=== PATIENT | male | born 1960 | race Asian ===

== ENCOUNTER 2019-06-10 15:58 | Outpatient (CLI) | payer OTHER | END 2019-06-10 15:59 | disposition critical access hospital (66) | LOC: EMS 15:58 | PROVIDERS: ATTEND Surgery | DX: R41.82 Altered mental status, unspecified (principal); R45.1 Restlessness and agitation | CPT/HCPCS: A0425; A0427 ==

== ENCOUNTER 2019-06-10 16:20 | Inpatient (IN) | payer OTHER ==
[2019-06-10 16:45] LABS: BASOPHILS % (AUTO) 0.3 %; EOSINOPHILS % (AUTO) 0.3 %; HGB - HEMOGLOBIN 14.3 g/dL (14.0-18.0); LYMPHOCYTES # (AUTO) 0.6 10^3/uL (1.5-3.5); LYMPHOCYTES % (AUTO) 7.7 %; MEAN CORPUSCULAR HEMOGLOBIN 30.3 pg (27.0-31.0); MEAN CORPUSCULAR HGB CONC 32.6 g/dL (32.0-36.0); MEAN CORPUSCULAR VOLUME 92.8 fL (80.0-94.0); MEAN PLATELET VOLUME 8.7 fL (7.4-11.4); MONOCYTES # (AUTO) 0.4 10^3/uL (0.0-1.0); MONOCYTES % (AUTO) 5.6 %; NEUTROPHILS # (AUTO) 6.6 10^3/uL (1.5-6.6); NEUTROPHILS % (AUTO) 85.8 %; PLT - PLATELET COUNT 189 10^3/uL (130-450); RED BLOOD COUNT 4.72 10^6/uL (4.70-6.10); RED CELL DISTRIBUTION WIDTH 12.5 % (12.0-15.0); WHITE BLOOD COUNT 7.7 x10^3/uL (4.8-10.8)
[2019-06-10] MEDS ORDERED: PROCHLORPERAZINE 10 MG/2 ML VIAL IVP STA (16:46)
[2019-06-10] MEDS ORDERED: diphenhydrAMINE INJ 50 MG/ML VIAL IVP STA (16:46)
--- NOTE | 2019-06-10 16:49 | CT Report ---
Reason: ALOC, headache Procedure Date: 06/10/2019 Accession Number: [id number] / [id number] Procedure: CT - HEAD WO CPT Code: FULL RESULT: EXAM: CT HEAD EXAM DATE: 06/10/2019 04:27 PM. CLINICAL HISTORY: ALOC, headache. COMPARISON: None. TECHNIQUE: Multiaxial CT images were obtained from the foramen magnum to the vertex. Reformats: Sagittal and coronal. IV contrast: None. In accordance with CT protocol optimization, one or more of the following dose reduction techniques were utilized for this exam: automated exposure control, adjustment of mA and/or KV based on patient size, or use of iterative reconstructive technique. FINDINGS: Parenchyma: No intraparenchymal hemorrhage. No evidence of mass, midline shift, or CT findings of infarction. Larsen-white differentiation is distinct. Extraaxial Spaces: Normal for age. No subdural or epidural collections identified. Ventricles: Normal in size and position. Sinuses and Orbits: Imaged paranasal sinuses, orbits, and mastoids show no significant abnormality. Bones: No evidence of fracture or calvarial defect. Other: Globes and orbits are unremarkable. IMPRESSION: 1. No acute intracranial abnormality is identified. RADIA
--- NOTE | 2019-06-10 16:51 | ED Physician Documentation ---
PD HPI HEADACHE - Stated complaint Stated Complaint: POSS HEAD BLEED - Chief complaint Chief Complaint: Neuro - History obtained from History obtained from: Patient, Family - History of Present Illness Timing - onset: How many days ago (3) Timing - onset during: Rest Timing - duration: Days (3) Timing - details: Gradual onset Pain level max: 10 Pain level now: 10 Location: Global Quality: Throbbing, Aching. No: Thunderclap Associated symptoms: Other (became altered and combative today) Recently seen: Clinic (toradol given in clinic today.) - Additional information Additional information: given 7mg versed by EMS Review of Systems Unable to obtain: AMS Constitutional: denies: Fever GI: denies: Vomiting PD PAST MEDICAL HISTORY - Past Medical History Past Medical History: Yes Cardiovascular: Hypertension, High cholesterol Respiratory: None Neuro: None Endocrine/Autoimmune: None GI: None : None HEENT: None Psych: None Musculoskeletal: None Derm: None - Past Surgical History Past Surgical History: Yes HEENT: Tonsil/Adenoidectomy - Present Medications Home Medications: Ambulatory Orders Medication Instructions Recorded Confirmed Lisinopril 10 mg PO DAILY 06/10/19 06/10/19 Lisinopril 10 mg PO DAILY 06/10/19 06/10/19 Lovastatin 40 mg PO DAILY 06/10/19 06/10/19 Lovastatin 40 mg PO DAILY 06/10/19 06/10/19 Venlafaxine HCl [Venlafaxine HCl 37.5 mg PO DAILY 06/10/19 06/10/19 ER] Venlafaxine [Effexor] 37.5 mg PO DAILY 06/10/19 06/10/19 - Allergies Allergies/Adverse Reactions: Allergies Allergy/AdvReac Type Severity Reaction Status Date / Time No Known Drug Allergies Allergy Verified 06/10/19 16:35 - Social History Does the pt smoke?: No Smoking Status: Never smoker Does the pt drink ETOH?: Yes Does the pt have substance abuse?: Yes Substance Use and Type: Marijuana - Immunizations Immunizations are current?: Yes - POLST Patient has POLST: No PD ED PE NORMAL - Vitals Vital signs reviewed: Yes - General General: No acute distress, Other (lying on stretcher, medicated with versed.) - HEENT HEENT: Atraumatic, PERRL, Moist mucous membranes - Neck Neck: Supple, no meningeal sign, No bony TTP - Cardiac Cardiac: RRR - Respiratory Respiratory: No respiratory distress, Clear bilaterally - Abdomen Abdomen: Soft, Non tender, Non distended - Back Back: No spinal TTP - Derm Derm: Warm and dry - Extremities Extremities: No deformity - Neuro Neuro: Other (drowsy, but arousable) Results - Vitals Vitals: Vital Signs - 24 hr 06/10/19 06/10/19 06/10/19 16:27 17:12 17:30 Temperature 36.4 C L Heart Rate 65 70 68 Respiratory 24 16 18 Rate Blood Pressure 129/70 109/57 L 153/93 H O2 Saturation 100 100 100 06/10/19 06/10/19 06/10/19 18:00 18:30 19:00 Temperature Heart Rate 69 70 70 Respiratory 18 18 16 Rate Blood Pressure 147/83 H 161/90 H 158/90 H O2 Saturation 98 99 99 06/10/19 06/10/19 06/10/19 19:30 20:00 21:00 Temperature 36.6 C Heart Rate 71 72 71 Respiratory 15 18 12 Rate Blood Pressure 152/84 H 145/79 H 148/85 H O2 Saturation 99 99 99 06/10/19 21:54 Temperature 36.7 C Heart Rate 68 Respiratory 14 Rate Blood Pressure 149/86 H O2 Saturation 98 Oxygen O2 Source Room air - EKG (time done) 1727 Rate: Rate (enter#) (59) Rhythm: NSR Causey: Normal Intervals: Normal VA QRS: Normal Ischemia: Normal ST segments - Labs Labs: Laboratory Tests 06/10/19 06/10/19 06/10/19 16:39 16:39 16:49 WBC 7.7 RBC 4.72 Hgb 14.3 Hct 43.8 MCV 92.8 MCH 30.3 MCHC 32.6 RDW 12.5 Plt Count 189 MPV 8.7 Neut # (Auto) 6.6 Lymph # (Auto) 0.6 L [place] # (Auto) 0.4 Eos # (Auto) 0.0 Baso # (Auto) 0.0 Absolute Nucleated RBC 0.00 Nucleated RBC % 0.0 Sodium 137 Potassium 4.2 Chloride 103 Carbon Dioxide 23 Anion Gap 11.0 BUN 25 H Creatinine 1.2 Estimated GFR (MDRD) 62 L Glucose 141 H Calcium 9.2 Total Bilirubin 0.3 AST 18 ALT 16 Alkaline Phosphatase 41 L Total Protein 7.1 Albumin 4.0 Globulin 3.1 Albumin/Globulin Ratio 1.3 Lipase 26 Urine Color Urine Clarity Urine pH Ur Specific [place] Urine Protein Urine Glucose (UA) Urine Ketones Urine Occult Blood Urine Nitrite Urine Bilirubin Urine Urobilinogen Ur Leukocyte Esterase Ur Microscopic Review Urine Culture Comments Salicylates < 6.0 Urine Opiates Screen Ur Oxycodone Screen Urine Methadone Screen Ur Propoxyphene Screen Acetaminophen < 10 L Ur Barbiturates Screen Ur Tricyclics Screen Ur Phencyclidine Scrn Ur Amphetamine Screen U Methamphetamines Scrn U Benzodiazepines Scrn Urine Cocaine Screen U Cannabinoids Screen Ethyl Alcohol < 5.0 06/10/19 17:33 WBC RBC Hgb Hct MCV MCH MCHC RDW Plt Count MPV Neut # (Auto) Lymph # (Auto) [place] # (Auto) Eos # (Auto) Baso # (Auto) Absolute Nucleated RBC Nucleated RBC % Sodium Potassium Chloride Carbon Dioxide Anion Gap BUN Creatinine Estimated GFR (MDRD) Glucose Calcium Total Bilirubin AST ALT Alkaline Phosphatase Total Protein Albumin Globulin Albumin/Globulin Ratio Lipase Urine Color YELLOW Urine Clarity CLEAR Urine pH 5.5 Ur Specific [place] 1.025 Urine Protein NEGATIVE Urine Glucose (UA) NEGATIVE Urine Ketones NEGATIVE Urine Occult Blood TRACE-LYSE Urine Nitrite NEGATIVE Urine Bilirubin NEGATIVE Urine Urobilinogen 0.2 (NORMAL) Ur Leukocyte Esterase NEGATIVE Ur Microscopic Review NOT INDICATED Urine Culture Comments NOT INDICATED Salicylates Urine Opiates Screen NEGATIVE Ur Oxycodone Screen NEGATIVE Urine Methadone Screen NEGATIVE Ur Propoxyphene Screen NEGATIVE Acetaminophen Ur Barbiturates Screen NEGATIVE Ur Tricyclics Screen NEGATIVE Ur Phencyclidine Scrn NEGATIVE Ur Amphetamine Screen NEGATIVE U Methamphetamines Scrn NEGATIVE U Benzodiazepines Scrn NEGATIVE Urine Cocaine Screen NEGATIVE U Cannabinoids Screen POSITIVE H Ethyl Alcohol - Rads (name of study) head CT Radiology: Prelim report reviewed, EMP read contemporaneously, See rad report (no acute abnormality) CT angiogram head and neck Radiology: Prelim report reviewed, EMP read contemporaneously, See rad report (normal) Procedures - Lumbar Puncture Position: Laying left side Location: L4-L5, Midline approach Anesthesia: Local lidocaine, Conscious sedation (versed) CSF: Clear Other: Sterile prep and drape, Patient tolerated well, No complications, Other (consent obtained from ) PD MEDICAL DECISION MAKING - ED course Complexity details: reviewed results, re-evaluated patient, considered differential, d/w patient, d/w family, d/w strategic planning consultant ED course: 59-year-old male with a history of hypertension. Presents with 3 days of headache. Acutely altered and combative this afternoon. Unclear etiology. This was several hours after a Toradol injection. He did use marijuana on Monday per his son. No fevers. No acute laboratory abnormalities to explain his symptoms. Negative head CT. Normal CT angiogram of the head and neck. CSF results will be followed up by the hospitalist. Fluid was clear upon collection.. He continues to be acutely altered in the emergency department. Therefore will place in observation for further evaluation and care. Discussed the case with Dr. Mario, hospitalist who accepts. This document was made in part using voice recognition software. While efforts are made to proofread this document, sound alike and grammatical errors may occur. Departure - Departure Disposition: ED Place in Observation Clinical Impression: Combative reaction Altered mental status Qualifiers: Altered mental status type: unspecified Qualified Code(s): R41.82 - Altered mental status, unspecified Headache Qualifiers: Headache type: unspecified Headache chronicity pattern: acute headache Intractability: intractable Qualified Code(s): R51 - Headache Condition: Stable
[2019-06-10 16:59] LABS: ACETAMINOPHEN < 10 ug/mL (10-30); ALBUMIN/GLOBULIN RATIO 1.3 (1.0-2.2); ALKALINE PHOSPHATASE 41 IU/L (42-121); ALT ALANINE AMINOTRANSFERASE 16 IU/L (10-60); AST ASPARTATE AMINOTRANSFERASE 18 IU/L (10-42); BILIRUBIN,TOTAL 0.3 mg/dL (0.2-1.0); BUN - BLOOD UREA NITROGEN 25 mg/dL (6-20); CALCIUM 9.2 mg/dL (8.5-10.3); CARBON DIOXIDE - CO2 23 mmol/L (21-32); CHLORIDE 103 mmol/L (101-111); CREATININE 1.2 mg/dL (0.6-1.2); GFR - MDRD 62 (>89); GLUCOSE 141 mg/dL (70-100); LIPASE 26 U/L (22-51); SALICYLATE < 6.0 mg/dL; SODIUM 137 mmol/L (135-145); TOTAL PROTEIN 7.1 g/dL (6.7-8.2)
[2019-06-10] MEDS ORDERED: SODIUM CHLORIDE 0.9% 1,000 ML IV ONE ×2 (17:05→19:49)
[2019-06-10] MEDS ORDERED: HYDROmorphone 1 MG/ML CARPUJECT IVP STA (17:05)
[2019-06-10 17:39] LABS: MUDS CUTOFF CONCENTRATIONS CUTOFF CONC BELOW:
[2019-06-10 17:43] LABS: BILIRUBIN,URINE NEGATIVE (NEGATIVE); GLUCOSE, URINE (UA) NEGATIVE (NEGATIVE); KETONES,URINE (UA) NEGATIVE (NEGATIVE); LEUKOCYTE ESTERASE, URINE NEGATIVE (NEGATIVE); NITRITE,URINE NEGATIVE (NEGATIVE); OCCULT BLOOD,URINE TRACE-LYSE (NEGATIVE); PH,URINE 5.5 PH (5.0-7.5); PROTEIN,URINE NEGATIVE (NEGATIVE); UROBILINOGEN,URINE 0.2 (NORMAL) E.U./dL (NORMAL)
[2019-06-10 17:46] LABS: CLARITY,URINE CLEAR (CLEAR)
[2019-06-10 17:52] LABS: AMPHETAMINE SCREEN,URINE NEGATIVE (NEGATIVE); BENZODIAZEPINES SCREEN, URINE NEGATIVE (NEGATIVE); COCAINE SCREEN URINE NEGATIVE (NEGATIVE); METHADONE SCREEN, URINE NEGATIVE (NEGATIVE); METHAMPHETAMINES SCREEN, URINE NEGATIVE (NEGATIVE); OPIATE SCREEN, URINE NEGATIVE (NEGATIVE); OXYCODONE SCREEN, URINE NEGATIVE (NEGATIVE); PROPOXYPHENE SCREEN, URINE NEGATIVE (NEGATIVE); TRICYCLIC ANTIDEPRESSANT,URINE NEGATIVE (NEGATIVE)
[2019-06-10] MEDS ORDERED: MIDAZOLAM 50 MG/10 ML VIAL IVP STA (20:35)
[2019-06-10] MEDS ORDERED: IOVERSOL 320 100 ML VIAL IVP ONE ×2 (20:48→21:20)
[2019-06-10] MEDS ORDERED: MIDAZOLAM 2 MG/2 ML VIAL IVP STA (20:51)
--- NOTE | 2019-06-10 21:34 | CT Report ---
Reason: ALOC, headache Procedure Date: 06/10/2019 Accession Number: [id number] / [id number] Procedure: CT - ANGIO HEAD W/WO CPT Code: FULL RESULT: EXAM: CT ANGIOGRAM HEAD. CT SCAN OF THE HEAD WITH CONTRAST. EXAM DATE: 06/10/2019 09:16 PM CLINICAL HISTORY: 59-year-old man with headache and altered mental status. COMPARISON: HEAD W/O 06/10/2019 4:24 PM. TECHNIQUE: - CT Scan Head: Using a multidetector scanner, axial images were acquired from the foramen magnum to the skull vertex following contrast administration. - CT Angiogram: Using a multidetector scanner, high-resolution axial images were acquired from the skull base through vertex following rapid infusion of intravenous contrast. Reformats: Multiplanar MIP reformats were reconstructed. Nascet criteria used for stenosis measurement. IV Contrast: OPTI 320 100ML. In accordance with CT protocol optimization, one or more of the following dose reduction techniques were utilized for this exam: automated exposure control, adjustment of mA and/or KV based on patient size, or use of iterative reconstructive technique. FINDINGS: CTA HEAD: RIGHT: - Visualized Internal Carotid: Patent without significant stenosis or aneurysm. There is trace atherosclerotic plaque along the siphon. - Anterior Cerebral: Patent without significant stenosis or aneurysm. - Middle Cerebral: Patent without significant stenosis or aneurysm. - Posterior Cerebral: Patent without significant stenosis or aneurysm. - Posterior Communicating: Not well seen. - Visualized Vertebral: Patent without significant stenosis or dissection. LEFT: - Visualized Internal Carotid: Patent without significant stenosis or atherosclerotic plaque. Small (1-2 mm) tapered outpouching is present along the supraclinoid segment at the expected location of the posterior communicating artery, most consistent with infundibulum. Otherwise, no evidence of aneurysm. - Anterior Cerebral: Patent without significant stenosis or aneurysm. - Middle Cerebral: Patent without significant stenosis or aneurysm. - Posterior Cerebral: Patent without significant stenosis or aneurysm. - Posterior Communicating: Not well seen. - Visualized Vertebral: Patent without significant stenosis or dissection. CENTRAL: - Anterior Communicating: Patent. No aneurysm. - Basilar: Patent without significant stenosis, dissection, or aneurysm. POSTCONTRAST HEAD: No abnormal enhancement. IMPRESSION: 1. Normal CTA of the head. No significant vascular stenosis or aneurysm. RADIA
--- NOTE | 2019-06-10 21:39 | CT Report ---
Reason: ALOC, headache Procedure Date: 06/10/2019 Accession Number: [id number] / [id number] Procedure: CT - ANGIO NECK W CPT Code: FULL RESULT: EXAM: CT ANGIOGRAM NECK EXAM DATE: 06/10/2019 09:16 PM. CLINICAL HISTORY: 59-year-old man with headache and altered mental status. COMPARISON: HEAD W/O 06/10/2019 4:24 PM HEAD ANGIO 06/10/2019 9:08 PM. TECHNIQUE: Routine axial helical imaging was performed from the skull base through the aortic arch. Reconstructions: Routine multiplanar 3D MIP reconstructions. IV Contrast: OPTI 320 100ML. Evaluation of arterial stenosis is based on a NASCET method of measurement. In accordance with CT protocol optimization, one or more of the following dose reduction techniques were utilized for this exam: automated exposure control, adjustment of mA and/or KV based on patient size, or use of iterative reconstructive technique. FINDINGS: RIGHT: - Common and Internal Carotid: Patent without signficant stenosis. No evidence of atherosclerotic plaque at the bifurcation. Stenosis by NASCET criteria: 0%. No evidence of dissection. - External Carotid: Unremarkable. - Vertebral: Patent without significant stenosis. No evidence of dissection. LEFT: - Common and Internal Carotid: Patent without signficant stenosis. No evidence of atherosclerotic plaque at the bifurcation. Stenosis by NASCET criteria: 0%. No evidence of dissection. - External Carotid: Unremarkable. - Vertebral: Patent without significant stenosis. No evidence of dissection. SOFT TISSUES AND BONES: Visualized soft tissues are unremarkable. Lung apices are clear. No evidence of acute fracture or malalignment of the cervical spine. IMPRESSION: 1. Normal CTA of the neck. No significant vascular stenosis, atherosclerotic plaque, or dissection. RADIA
[2019-06-10 22:22] LABS: CLARITY,CSF CLEAR (CLEAR); COLOR,CSF COLORLESS (COLORLESS); CSF TUBE # CSF TUBE# 3
[2019-06-10 22:23] LABS: CSF XANTHOCHROMIA ABSENT (ABSENT)
[2019-06-10 22:24] LABS: RED BLOOD CELL,CSF 0 /mm^3 (0-1); WHITE BLOOD CELL,CSF 192 /mm^3 (0-5)
--- NOTE | 2019-06-10 22:28 | HISTORY & PHYSICAL EXAMINATION ---
Chief Complaint - Chief Complaint Chief Complaint: Confusion, Headache per son History of Present Illness - Admitted From Admitted From:: Home - History Obtained From Records Reviewed: Yes History obtained from: Patient's son, EMR Exam Limitations: Encephalopathy - History of Present Illness HPI Comment/Other: This is a 59 year old male with a past medical history significant for hypertension who presents from home today as he became altered and combative. History is obtained from the son as the patient is altered. The patient's son tells me that he was doing well up until a few days ago when he started to complain of a headache which is not usual for the patient. The headache progressively got worse and the son believes the patient was complaining of some mild left ear discomfort. The headache became so severe this morning that he seeked medical attention at his PCP's office. The son tells me that the headache must have been really severe as his father normally does not seek medical attention. At his PCP's office, he received a shot of Toradol and went home to take a nap around noon. When he woke up from the nap, he was confused and agitated. EMS was called and the patient was given 7mg of Versed to sedate him. The son tells me he was doing quite well up until just a few days ago. He was still working out and being quite active. He did smoke a little marijuana on Monday per the son. He did travel to [place] and [place] near the end of April. He stayed in the city and did not go hiking or camping to their knowledge. He had not been complaining of fevers or rash. He does not have a history of h eadaches and an episode like this has not happened before. In the emergency department, he was afebrile with unremarkable vitals. His lab studies were also unremarkable. A CT and CTA of the head was unremarkable. The ER Physician performed an LP which showed clear CSF fluid. The patient will be admitted for further workup and management of his encephalopathy. History - Past Medical History Cardiovascular: reports: Hypertension, High cholesterol Respiratory: reports: None Neuro: reports: None Endocrine/Autoimmune: reports: None GI: reports: None : reports: None HEENT: reports: None Psych: reports: None Musculoskeletal: reports: None Derm: reports: None MRSA Hx?: No - Past Surgical History HEENT: reports: Tonsil/Adenoidectomy - Family & Social History Family History: Father: Hypertension Family History Comment/Other: Son reports no family history of seizures, headach es, stroke or cardiac problems. Living arrangement: At home Social History Notes: Does not smoke cigarettes although he does use tobacco. Rare marijuana use. Does not use illicit drugs. Is quite active and works out regularly. Recently traveled to [place] and [facility] in April but stayed in the city and did not camping/hiking. This history is obtained from the son. - Substance History Use: Uses substance without health or social issues: Tobacco, Cannabis - POLST Patient has POLST: No Meds/Allgy - Home Medications Home Medications: Ambulatory Orders Medication Instructions Recorded Confirmed Lisinopril 10 mg PO DAILY 06/10/19 06/10/19 Lisinopril 10 mg PO DAILY 06/10/19 06/10/19 Lovastatin 40 mg PO DAILY 06/10/19 06/10/19 Lovastatin 40 mg PO DAILY 06/10/19 06/10/19 Venlafaxine HCl [Venlafaxine HCl 37.5 mg PO DAILY 06/10/19 06/10/19 ER] Venlafaxine [Effexor] 37.5 mg PO DAILY 06/10/19 06/10/19 - Allergies Allergies/Adverse Reactions: Allergies Allergy/AdvReac Type Severity Reaction Status Date / Time No Known Drug Allergies Allergy Verified 06/10/19 16:35 Review of Systems - Neurological Neurological: reports: Headache - All Other Systems All Other Systems: reports: Other (Unable to obtain reviews of system due to encephalopathy.) Prior Level of Functionality: Independent with ADL's per son. Exam - Vital Signs Reviewed Vital Signs: Yes Vital Signs: Vital Signs x48h Temp Pulse Resp BP Pulse Ox 06/10/19 21:54 36.7 C 68 14 149/86 H 98 06/10/19 21:00 71 12 148/85 H 99 06/10/19 20:00 72 18 145/79 H 99 06/10/19 19:30 36.6 C 71 15 152/84 H 99 06/10/19 19:00 70 16 158/90 H 99 06/10/19 18:30 70 18 161/90 H 99 06/10/19 18:00 69 18 147/83 H 98 06/10/19 17:30 68 18 153/93 H 100 06/10/19 17:12 70 16 109/57 L 100 06/10/19 16:27 36.4 C L 65 24 129/70 100 - Physical Exam General Appearance: positive: Moderate distress, Lethargic Eyes Bilateral: positive: PERRL, Conjunctivae nml Neck: positive: Nml inspection, Other (Does not appear to have nuchal rigidity although exam limited secondary to mental status.). negative: Stiff neck, Kernig's sign Respiratory: positive: No respiratory distress, Breath sounds nml. negative: Wheezes, Rales, Rhonchi Cardiovascular: positive: Regular rate & rhythm, No murmur. negative: Tachycardia, Bradycardia Abdomen: positive: Non-tender, Nml bowel sounds, No distention. negative: Tenderness, Guarding, Rebound Skin: positive: No rash, Warm, Dry. negative: Cyanosis, Diaphoresis, Pallor, Skin rash Extremities: positive: No pedal edema Neurologic/Psychiatric: positive: Disoriented to person, Disoriented to place, Disoriented to time, Other (No clonus. Obtain to check reflexes due to patient b eing agitated. He does not follow commands and is combative but able to move all four extremiteis without focal deficits.) Conclusion/Plan - Problem List (1) Encephalopathy Conclusion/Plan: His presentation is acute and is concerning for a bacterial or viral meninigitis/encephalitis given his worsening headache and new change in mental status despite him being afebrile. The CT of the head and CTA were unremarkable. Initial labs are unremarkable including CBC, renal function, and urinalysis. His liver function is also normal which makes hepatic encephalopathy less likely. His urine drug screen does reveal marijuana but was negative for other substances. An LP was performed by the ER physician and clear CSF was noted. The results are pending. - Will start empiric antibiotics with Vancomycin, Ceftriaxone, and Ampicillin to cover for bacterial meningitis - Will also start empiric Acyclovir given the concern for a viral etiology - Follow up CSF studies - Will check Ammonia, TSH, and blood cultures - Will obtain MRI of the brain in the AM (2) Hypertension Conclusion/Plan: He has a history of hypertension for which he takes Lisinopril. He is currently hypertensive with systolics in the 150's. - As he is unable to take anything by mouth due to his mental status, I will hold his home Lisinopril - Will use Labetalol PRN (3) Hyperlipidemia Conclusion/Plan: He is on a statin at home. Stable. - Will restart home statin once taking PO - Lab Results Lab results reviewed: Yes Jae Bones: 06/10/19 16:39 06/10/19 16:39 - Diagnostic Imaging Results Diagnostic Imaging Results: positive: Final report reviewed Core Measures - Anticipated LOS I expect patient to be DC'd or transferred within 96 hours.: Yes - Issues Hospital Issues and Management Plan: Encephalopathy secondary suspected viral/bacterial meningitis. Will require IV antivirals and antibiotics. - DVT/VTE - Prophylaxis VTE/DVT Device ordered at admit?: Yes VTE/DVT Prophylaxis med ordered at admit?: No
[2019-06-10 22:29] LABS: CSF - GLUCOSE 65 mg/dL (45-70)
[2019-06-10 22:39] LABS: MAGNESIUM 2.1 mg/dL (1.7-2.8); PHOSPHORUS 3.5 mg/dL (2.5-4.6)
[2019-06-10 22:53] LABS: LYMPHOCYTES,CSF 94 % (40-80); NEUTROPHILS,CSF 6 % (0-6)
[2019-06-10] MEDS ORDERED: ACYCLOVIR INJ 800 MG in SODIUM CHLORIDE 0.9% 500 ML IV SCH (23:00)
[2019-06-10] MEDS ORDERED: AMPICILLIN 2 GM in SODIUM CHLORIDE 0.9% MINIBAG 100 ML IV SCH (23:00)
[2019-06-10] MEDS ORDERED: cefTRIAXone 2 GM in SODIUM CHLORIDE 0.9% MINIBAG 100 ML IV SCH (23:00)
[2019-06-10] MEDS ORDERED: VANCOMYCIN INJ 1.25 GM in SODIUM CHLORIDE 0.9% 500 ML IV SCH (23:00)
[2019-06-10] MEDS: LACTATED RINGERS 1,000 ML IV SCH (23:04)
[2019-06-10] MEDS ORDERED: ACETAMINOPHEN 1,000 MG/100 ML 100 ML IV PRN (23:15)
[2019-06-10] MEDS ORDERED: SODIUM CHLORIDE 0.9% MINIBAG 100 ML IV ONE (23:58)
[2019-06-11] MEDS: SODIUM CHLORIDE FLUSH 0.9% 10 ML SYRINGE IVP SCH ×3 (00:03→16:21)
[2019-06-11] MEDS ORDERED: WATER FOR INJECTION,STERILE 20 ML ONE (00:43)
[2019-06-11] MEDS ORDERED: hydrALAZINE INJ 20 MG/ML VIAL IVP PRN (01:09)
[2019-06-11] MEDS: SODIUM CHLORIDE FLUSH 0.9% 10 ML SYRINGE IVP PRN ×2 (01:34→04:35)
[2019-06-11] MEDS: MORPHINE 2 MG/ML CARPUJECT IVP PRN ×2 (01:50→04:35)
[2019-06-11] MEDS ORDERED: SODIUM CHLORIDE 0.9% 500 ML IV ONE (03:19)
[2019-06-11] MEDS: ACYCLOVIR INJ 800 MG in SODIUM CHLORIDE 0.9% 500 ML IV SCH ×3 (03:30→18:41)
[2019-06-11] MEDS: AMPICILLIN 2 GM in SODIUM CHLORIDE 0.9% MINIBAG 100 ML IV SCH ×2 (04:34→08:07)
[2019-06-11 04:56] LABS: BASOPHILS % (AUTO) 0.3 %; EOSINOPHILS % (AUTO) 0.1 %; HGB - HEMOGLOBIN 12.6 g/dL (14.0-18.0); LYMPHOCYTES # (AUTO) 0.8 10^3/uL (1.5-3.5); LYMPHOCYTES % (AUTO) 6.9 %; MEAN CORPUSCULAR HEMOGLOBIN 29.9 pg (27.0-31.0); MEAN CORPUSCULAR HGB CONC 32.3 g/dL (32.0-36.0); MEAN CORPUSCULAR VOLUME 92.6 fL (80.0-94.0); MEAN PLATELET VOLUME 8.5 fL (7.4-11.4); MONOCYTES # (AUTO) 0.7 10^3/uL (0.0-1.0); MONOCYTES % (AUTO) 6.1 %; NEUTROPHILS # (AUTO) 9.4 10^3/uL (1.5-6.6); NEUTROPHILS % (AUTO) 86.2 %; PLT - PLATELET COUNT 181 10^3/uL (130-450); RED BLOOD COUNT 4.21 10^6/uL (4.70-6.10); RED CELL DISTRIBUTION WIDTH 12.8 % (12.0-15.0); WHITE BLOOD COUNT 10.9 x10^3/uL (4.8-10.8)
[2019-06-11 05:05] LABS: CALCIUM 8.3 mg/dL (8.5-10.3); CREATININE 1.1 mg/dL (0.6-1.2)
[2019-06-11] MEDS ORDERED: LORazepam 2 MG/ML VIAL IVP STA (06:19)
[2019-06-11] MEDS: LACTATED RINGERS 1,000 ML IV SCH ×2 (10:49→18:46)
[2019-06-11] MEDS ORDERED: VANCOMYCIN INJ 1 GM, VANCOMYCIN INJ 250 MG in SODIUM CHLORIDE 0.9% 250 ML IV SCH (13:00)
[2019-06-11] MEDS ORDERED: VANCOMYCIN INJ 1.25 GM in SODIUM CHLORIDE 0.9% 500 ML IV SCH (13:00)
--- NOTE | 2019-06-11 17:46 | PROVIDER PROGRESS NOTE ---
Assessment/Plan - Problem List (1) Viral meningitis, unspecified Assessment/Plan: The LP showed high WBC which were mostly lymphocytes, suggesting a non-bacterial meningitis. His confusion and agitation have improved, he cannot remember getting a christianson or the entire presentation. Will stop the empiric antibiotics and continue Acyclovir for several days. Will liberalize activity by stopping 4-point restraints (which were needed for agitation) and advancing his diet. Etiologies are unclear: he does not report travel or have suspicion for being immuno-compromised. I told his that I plan to call ID at for input on work-up Follow CBC daily. Increase activity as tolerated with possible discharge tomorrow. (2) Hypertension Assessment/Plan: Will restart his po BP meds, now that he is cooperative and is able to start a diet. (3) Chronic bronchitis Assessment/Plan: reported to me that he had bronchitis in August which lasted 6 to 8 weeks. He again started to have similar symptoms 2 weeks ago and these have continued. She is not a cigarette smoker (quit 40 years ago).chew tobacco however. I will address this with the ID consult - Current Meds Current Meds: Current Medications Generic Name Dose Route Start Last Admin Trade Name Freq PRN Reason Stop Dose Admin Lactated Ringer's 1,000 mls @ 100 mls/hr 06/10/19 23:00 06/11/19 10:49 Lr IV 100 mls/hr .Q10H JALEEL Administration Acyclovir 800 mg/ Sodium 516 mls @ 500 mls/hr 06/11/19 03:00 06/11/19 12:50 Chloride IV Infused Q8H JALEEL Infusion Morphine Sulfate 2 mg 06/11/19 00:43 06/11/19 04:35 Morphine (Carpuject) IVP 2 mg Q4HR PRN Administration PAIN Sodium Chloride 10 ml 06/10/19 22:00 06/11/19 04:35 Normal Saline Flush 0.9% IVP 10 ml PRN PRN Administration NEEDED PER PROVIDER ORDERS Sodium Chloride 10 ml 06/11/19 01:00 06/11/19 16:21 Normal Saline Flush 0.9% IVP Not Given 0100,0900,1700 JALEEL - Lab Result Fish Bone Diagrams: 06/11/19 04:50 06/11/19 04:50 - Additional Planning My Orders: My Active Orders 06/11/19 10:15 Telemetry-Discontinue [RC] .ONCE 06/11/19 Dinner DIET [Low Sodium Diet] [DIET] Subjective - Subjective Patient Reports: No Complaints, Fatigue, Other (No appetite according to the , but he did swallow orange slices. He is more irritable according to the but the headache, agitation and confusion resolved) Objective Vital Signs: Vital Signs - 24 hr 06/10/19 06/10/19 06/10/19 18:00 18:30 19:00 Temperature Heart Rate 69 70 70 Heart Rate [ Brachial] Heart Rate [ Monitoring electrodes] Respiratory 18 18 16 Rate Blood Pressure 147/83 H 161/90 H 158/90 H Blood Pressure [Right Ankle] Blood Pressure [Right Brachial artery] O2 Saturation 98 99 99 06/10/19 06/10/19 06/10/19 19:30 20:00 21:00 Temperature 36.6 C Heart Rate 71 72 71 Heart Rate [ Brachial] Heart Rate [ Monitoring electrodes] Respiratory 15 18 12 Rate Blood Pressure 152/84 H 145/79 H 148/85 H Blood Pressure [Right Ankle] Blood Pressure [Right Brachial artery] O2 Saturation 99 99 99 06/10/19 06/10/19 06/11/19 21:54 22:57 01:16 Temperature 36.7 C 37.2 C 37.2 C Heart Rate 68 68 Heart Rate [ Brachial] Heart Rate [ 65 Monitoring electrodes] Respiratory 14 16 16 Rate Blood Pressure 149/86 H Blood Pressure 162/74 H [Right Ankle] Blood Pressure [Right Brachial artery] O2 Saturation 98 98 98 06/11/19 06/11/19 06/11/19 04:47 08:14 08:29 Temperature 37.1 C 37.6 C H 37.6 C H Heart Rate 59 L Heart Rate [ 64 59 L Brachial] Heart Rate [ Monitoring electrodes] Respiratory 18 20 20 Rate Blood Pressure Blood Pressure [Right Ankle] Blood Pressure 121/69 [Right Brachial artery] O2 Saturation 93 96 96 06/11/19 15:42 Temperature 36.8 C Heart Rate Heart Rate [ 58 L Brachial] Heart Rate [ Monitoring electrodes] Respiratory 20 Rate Blood Pressure Blood Pressure [Right Ankle] Blood Pressure 116/60 [Right Brachial artery] O2 Saturation 96 Oxygen O2 Source Room air I&O (Last 24 Hrs): Intake and Output Totals x24h 06/09/19 06/10/1919 23:59 23:59 23:59 Intake Total 2100 2608.666 Output Total 750 Balance 2100 1858.666 General: Other (Sleeping, awakens to his name, answers appropriately but slowly.) HEENT: Atraumatic, Mucous membr. moist/pink Neck: Supple Neuro: Non Focal Cardiovascular: Regular rate Respiratory: No respiratory distress Abdomen: Soft Extremities: No edema - Results Results: Laboratory Results WBC 10.9 x10^3/uL (4.8-10.8) H 06/11/19 04:50 RBC 4.21 10^6/uL (4.70-6.10) L 06/11/19 04:50 Hgb 12.6 g/dL (14.0-18.0) L 06/11/19 04:50 Hct 39.0 % (42.0-52.0) L 06/11/19 04:50 MCV 92.6 fL (80.0-94.0) 06/11/19 04:50 MCH 29.9 pg (27.0-31.0) 06/11/19 04:50 MCHC 32.3 g/dL (32.0-36.0) 06/11/19 04:50 RDW 12.8 % (12.0-15.0) 06/11/19 04:50 Plt Count 181 10^3/uL (130-450) 06/11/19 04:50 MPV 8.5 fL (7.4-11.4) 06/11/19 04:50 Neut # (Auto) 9.4 10^3/uL (1.5-6.6) H 06/11/19 04:50 Lymph # (Auto) 0.8 10^3/uL (1.5-3.5) L 06/11/19 04:50 [place] # (Auto) 0.7 10^3/uL (0.0-1.0) 06/11/19 04:50 Eos # (Auto) 0.0 10^3/uL (0.0-0.7) 06/11/19 04:50 Baso # (Auto) 0.0 10^3/uL (0.0-0.1) 06/11/19 04:50 Absolute Nucleated RBC 0.00 x10^3/uL 06/11/19 04:50 Nucleated RBC % 0.0 /100WBC 06/11/19 04:50 Sodium 139 mmol/L (135-145) 06/11/19 04:50 Potassium 3.9 mmol/L (3.5-5.0) 06/11/19 04:50 Chloride 105 mmol/L (101-111) 06/11/19 04:50 Carbon Dioxide 22 mmol/L (21-32) 06/11/19 04:50 Anion Gap 12.0 (6-13) 06/11/19 04:50 BUN 22 mg/dL (6-20) H 06/11/19 04:50 Creatinine 1.1 mg/dL (0.6-1.2) 06/11/19 04:50 Estimated GFR (MDRD) 68 (>89) L 06/11/19 04:50 Glucose 134 mg/dL (70-100) H 06/11/19 04:50 Calcium 8.3 mg/dL (8.5-10.3) L 06/11/19 04:50 Phosphorus 3.5 mg/dL (2.5-4.6) 06/10/19 22:22 Magnesium 2.1 mg/dL (1.7-2.8) 06/10/19 22:22 Total Bilirubin 0.3 mg/dL (0.2-1.0) 06/10/19 16:39 AST 18 IU/L (10-42) 06/10/19 16:39 ALT 16 IU/L (10-60) 06/10/19 16:39 Alkaline Phosphatase 41 IU/L (42-121) L 06/10/19 16:39 Ammonia 10.0 umol/L (7-35) 06/10/19 22:22 Total Creatine Kinase 341 IU/L (22-269) H 06/10/19 22:22 Total Protein 7.1 g/dL (6.7-8.2) 06/10/19 16:39 Albumin 4.0 g/dL (3.2-5.5) 06/10/19 16:39 Globulin 3.1 g/dL (2.1-4.2) 06/10/19 16:39 Albumin/Globulin Ratio 1.3 (1.0-2.2) 06/10/19 16:39 Lipase 26 U/L (22-51) 06/10/19 16:39 TSH 1.73 uIU/mL (0.34-5.60) 06/10/19 22:22 Urine Color YELLOW 06/10/19 17:33 Urine Clarity CLEAR (CLEAR) 06/10/19 17:33 Urine pH 5.5 PH (5.0-7.5) 06/10/19 17:33 Ur Specific [place] 1.025 (1.002-1.030) 06/10/19 17:33 Urine Protein NEGATIVE mg/dL (NEGATIVE) 06/10/19 17:33 Urine Glucose (UA) NEGATIVE mg/dL (NEGATIVE) 06/10/19 17:33 Urine Ketones NEGATIVE mg/dL (NEGATIVE) 06/10/19 17:33 Urine Occult Blood TRACE-LYSE (NEGATIVE) 06/10/19 17:33 Urine Nitrite NEGATIVE (NEGATIVE) 06/10/19 17:33 Urine Bilirubin NEGATIVE (NEGATIVE) 06/10/19 17:33 Urine Urobilinogen 0.2 (NORMAL) E.U./dL (NORMAL) 06/10/19 17:33 Ur Leukocyte Esterase NEGATIVE (NEGATIVE) 06/10/19 17:33 Ur Microscopic Review NOT INDICATED 06/10/19 17:33 Urine Culture Comments NOT INDICATED 06/10/19 17:33 CSF Color COLORLESS (COLORLESS) 06/10/19 21:59 CSF Clarity CLEAR (CLEAR) 06/10/19 21:59 Xanthrochromic ABSENT (ABSENT) 06/10/19 21:59 CSF WBC 192 /mm^3 (0-5) H* 06/10/19 21:59 CSF RBC 0 /mm^3 (0-1) 06/10/19 21:59 CSF Cell Count Tube # CSF TUBE# 3 06/10/19 21:59 CSF Neutrophils 6 % (0-6) 06/10/19 21:59 CSF Lymphocytes 94 % (40-80) H 06/10/19 21:59 CSF Glucose 65 mg/dL (45-70) 06/10/19 21:59 CSF Total Protein 162 mg/dL (15-60) H 06/10/19 21:59 Salicylates < 6.0 mg/dL 06/10/19 16:39 Urine Opiates Screen NEGATIVE (NEGATIVE) 06/10/19 17:33 Ur Oxycodone Screen NEGATIVE (NEGATIVE) 06/10/19 17:33 Urine Methadone Screen NEGATIVE (NEGATIVE) 06/10/19 17:33 Ur Propoxyphene Screen NEGATIVE (NEGATIVE) 06/10/19 17:33 Acetaminophen < 10 ug/mL (10-30) L 06/10/19 16:39 Ur Barbiturates Screen NEGATIVE (NEGATIVE) 06/10/19 17:33 Ur Tricyclics Screen NEGATIVE (NEGATIVE) 06/10/19 17:33 Ur Phencyclidine Scrn NEGATIVE (NEGATIVE) 06/10/19 17:33 Ur Amphetamine Screen NEGATIVE (NEGATIVE) 06/10/19 17:33 U Methamphetamines Scrn NEGATIVE (NEGATIVE) 06/10/19 17:33 U Benzodiazepines Scrn NEGATIVE (NEGATIVE) 06/10/19 17:33 Urine Cocaine Screen NEGATIVE (NEGATIVE) 06/10/19 17:33 U Cannabinoids Screen POSITIVE (NEGATIVE) H 06/10/19 17:33 Ethyl Alcohol < 5.0 mg/dL 06/10/19 16:49
[2019-06-12] MEDS: ACYCLOVIR INJ 800 MG in SODIUM CHLORIDE 0.9% 500 ML IV SCH ×3 (03:00→18:29)
[2019-06-12] MEDS: SODIUM CHLORIDE FLUSH 0.9% 10 ML SYRINGE IVP SCH ×3 (03:00→16:18)
[2019-06-12 06:01] LABS: BASOPHILS % (AUTO) 0.5 %; EOSINOPHILS # (AUTO) 0.1 10^3/uL (0.0-0.7); EOSINOPHILS % (AUTO) 1.4 %; HGB - HEMOGLOBIN 12.1 g/dL (14.0-18.0); LYMPHOCYTES # (AUTO) 1.7 10^3/uL (1.5-3.5); LYMPHOCYTES % (AUTO) 23.4 %; MEAN CORPUSCULAR HEMOGLOBIN 31.2 pg (27.0-31.0); MEAN CORPUSCULAR HGB CONC 33.2 g/dL (32.0-36.0); MEAN CORPUSCULAR VOLUME 93.8 fL (80.0-94.0); MONOCYTES # (AUTO) 0.6 10^3/uL (0.0-1.0); MONOCYTES % (AUTO) 7.8 %; NEUTROPHILS # (AUTO) 4.9 10^3/uL (1.5-6.6); NEUTROPHILS % (AUTO) 66.5 %; PLT - PLATELET COUNT 168 10^3/uL (130-450); RED BLOOD COUNT 3.88 10^6/uL (4.70-6.10); RED CELL DISTRIBUTION WIDTH 12.5 % (12.0-15.0); WHITE BLOOD COUNT 7.3 x10^3/uL (4.8-10.8)
[2019-06-12 06:12] LABS: CALCIUM 8.3 mg/dL (8.5-10.3); CREATININE 1.1 mg/dL (0.6-1.2)
[2019-06-12] MEDS: LACTATED RINGERS 1,000 ML IV SCH ×2 (06:19→17:37)
[2019-06-12] MEDS: POLYETHYLENE GLYCOL 3350 17 GM PACKET PO SCH (10:11)
[2019-06-12] MEDS: DOCUSATE SODIUM 250 MG CAPSULE PO SCH (10:11)
--- NOTE | 2019-06-12 15:24 | PROVIDER PROGRESS NOTE ---
Assessment/Plan - Problem List (1) Viral meningitis, unspecified Assessment/Plan: I discussed his case with Infectious Disease [employer]. Advanced age (over 55) is enough of a risk factor to have caught this virus, according to the ID Fellow. She advised that an additional test be run off the CSF fluid: PCR for HSV. 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 IV Acyclovir at 10 mg/kg dose every 8 hours is recommended. The duration of treatment is at least 7 days or until the PCR result comes back negative, alternatively if it is positive, he may need longer IV therapy. I discussed all this information with patient and . The is a nurse and states that she has done home infusions before, for a family member that had a PICC line. The patient will be made inpatient status starting today. Utilization management department was informed (Niru). Social Work will be asked to help arrange for IV infusions. A PICC line placement will be ordered. (2) Viral syndrome Assessment/Plan: He is very lethargic, sleeps almost all day, since admission. He has no appetite, but no N/V. He only takes liquids off his meal trays. Will de-escalate his diet to full liquids. Will follow BMP, Mg daily. (3) Hypertension Assessment/Plan: BP is stable, even off his home BP meds, but he is taking in nearly no fluids and no solids (no salt). (4) Chronic bronchitis Qualifiers: Chronic bronchitis type: unspecified Qualified Code(s): J42 - Unspecified chronic bronchitis Assessment/Plan: Yesterday, the reported a long cough last Fall, lasting 6-8 weeks, and a cough started about a week ago. Then he had a day of ear pain and 3 days of a headache. When I discussed his presentation with the ID Fellow from , she thought it was consistent with a viral syndrome. There has been no cough while here. He sleeps most of the day and is not dyspneic or coughing. - Current Meds Current Meds: Current Medications Generic Name Dose Route Start Last Admin Trade Name Freq PRN Reason Stop Dose Admin Docusate Sodium 250 - 500 mg 06/12/19 09:00 06/12/19 10:11 Colace 250mg Capsule PO 250 mg DAILY JALEEL Administration Lactated Ringer's 1,000 mls @ 100 mls/hr 06/10/19 23:00 06/12/19 12:05 Lr IV 100 mls/hr .Q10H JALEEL Infusion Acetaminophen 100 mls @ 400 mls/hr 06/10/19 23:15 06/12/19 15:04 Ofirmev IV Infused Q6HR PRN Infusion FEVER > 100.5 F Acyclovir 800 mg/ Sodium 516 mls @ 500 mls/hr 06/11/19 03:00 06/12/19 12:07 Chloride IV Infused Q8H JALEEL Infusion Morphine Sulfate 2 mg 06/11/19 00:43 06/11/19 04:35 Morphine (Carpuject) IVP 2 mg Q4HR PRN Administration PAIN Polyethylene Glycol 17 gm 06/12/19 09:00 06/12/19 10:11 Miralax PO 17 gm DAILY JALEEL Administration Sodium Chloride 10 ml 06/10/19 22:00 06/11/19 04:35 Normal Saline Flush 0.9% IVP 10 ml PRN PRN Administration NEEDED PER PROVIDER ORDERS Sodium Chloride 10 ml 06/11/19 01:00 06/12/19 10:01 Normal Saline Flush 0.9% IVP Not Given 0100,0900,1700 JALEEL - Lab Result Fish Bone Diagrams: 06/12/19 05:44 06/12/19 05:44 - Additional Planning My Orders: My Active Orders 06/12/19 12:49 Miscellaneous Laboratory Order [LAB] Urgent 06/12/19 15:13 Transfer [Admit \ Transfer \ Status] [RC] .ONCE 06/12/19 15:14 PICC Line Care [RC] Q4H PICC Line Insert [RC] .ONCE 06/12/19 Lunch DIET [Full Liquid Diet] [DIET] Subjective - Subjective Patient Reports: Feeling Better, Fatigue, Other (No appetite) Objective Vital Signs: Vital Signs - 24 hr 06/11/19 06/12/19 06/12/19 15:42 00:33 07:44 Temperature 36.8 C 37.3 C 36.6 C Heart Rate [ 58 L 62 60 Brachial] Heart Rate [ Monitoring electrodes] Respiratory 20 16 18 Rate Blood Pressure 116/60 123/56 L 113/63 [Right Brachial artery] O2 Saturation 96 98 97 06/12/19 14:00 Temperature 36.5 C Heart Rate [ 55 L Brachial] Heart Rate [ 16 L Monitoring electrodes] Respiratory Rate Blood Pressure 115/97 H [Right Brachial artery] O2 Saturation 98 Oxygen O2 Source Room air I&O (Last 24 Hrs): Intake and Output Totals x24h 06/10/19 06/11/19 06/12/19 23:59 23:59 23:59 Intake Total 2100 4019.666 3102.001 Output Total 750 Balance 2100 3269.666 3102.001 General: Alert, Oriented x3 HEENT: Mucous membr. moist/pink Neck: No JVD Neuro: Non Focal, Other (Lethargic) Cardiovascular: Regular rate, No murmurs Respiratory: No respiratory distress Abdomen: Normal bowel sounds, Soft Extremities: No edema - Results Results: Laboratory Results WBC 7.3 x10^3/uL (4.8-10.8) 06/12/19 05:44 RBC 3.88 10^6/uL (4.70-6.10) L 06/12/19 05:44 Hgb 12.1 g/dL (14.0-18.0) L 06/12/19 05:44 Hct 36.4 % (42.0-52.0) L 06/12/19 05:44 MCV 93.8 fL (80.0-94.0) 06/12/19 05:44 MCH 31.2 pg (27.0-31.0) H 06/12/19 05:44 MCHC 33.2 g/dL (32.0-36.0) 06/12/19 05:44 RDW 12.5 % (12.0-15.0) 06/12/19 05:44 Plt Count 168 10^3/uL (130-450) 06/12/19 05:44 MPV 9.0 fL (7.4-11.4) 06/12/19 05:44 Neut # (Auto) 4.9 10^3/uL (1.5-6.6) 06/12/19 05:44 Lymph # (Auto) 1.7 10^3/uL (1.5-3.5) 06/12/19 05:44 [place] # (Auto) 0.6 10^3/uL (0.0-1.0) 06/12/19 05:44 Eos # (Auto) 0.1 10^3/uL (0.0-0.7) 06/12/19 05:44 Baso # (Auto) 0.0 10^3/uL (0.0-0.1) 06/12/19 05:44 Absolute Nucleated RBC 0.00 x10^3/uL 06/12/19 05:44 Nucleated RBC % 0.0 /100WBC 06/12/19 05:44 Sodium 137 mmol/L (135-145) 06/12/19 05:44 Potassium 4.0 mmol/L (3.5-5.0) 06/12/19 05:44 Chloride 105 mmol/L (101-111) 06/12/19 05:44 Carbon Dioxide 23 mmol/L (21-32) 06/12/19 05:44 Anion Gap 9.0 (6-13) 06/12/19 05:44 BUN 18 mg/dL (6-20) 06/12/19 05:44 Creatinine 1.1 mg/dL (0.6-1.2) 06/12/19 05:44 Estimated GFR (MDRD) 68 (>89) L 06/12/19 05:44 Glucose 109 mg/dL (70-100) H 06/12/19 05:44 Calcium 8.3 mg/dL (8.5-10.3) L 06/12/19 05:44 Phosphorus 3.5 mg/dL (2.5-4.6) 06/10/19 22:22 Magnesium 2.1 mg/dL (1.7-2.8) 06/10/19 22:22 Total Bilirubin 0.3 mg/dL (0.2-1.0) 06/10/19 16:39 AST 18 IU/L (10-42) 06/10/19 16:39 ALT 16 IU/L (10-60) 06/10/19 16:39 Alkaline Phosphatase 41 IU/L (42-121) L 06/10/19 16:39 Ammonia 10.0 umol/L (7-35) 06/10/19 22:22 Total Creatine Kinase 341 IU/L (22-269) H 06/10/19 22:22 Total Protein 7.1 g/dL (6.7-8.2) 06/10/19 16:39 Albumin 4.0 g/dL (3.2-5.5) 06/10/19 16:39 Globulin 3.1 g/dL (2.1-4.2) 06/10/19 16:39 Albumin/Globulin Ratio 1.3 (1.0-2.2) 06/10/19 16:39 Lipase 26 U/L (22-51) 06/10/19 16:39 TSH 1.73 uIU/mL (0.34-5.60) 06/10/19 22:22 Urine Color YELLOW 06/10/19 17:33 Urine Clarity CLEAR (CLEAR) 06/10/19 17:33 Urine pH 5.5 PH (5.0-7.5) 06/10/19 17:33 Ur Specific [place] 1.025 (1.002-1.030) 06/10/19 17:33 Urine Protein NEGATIVE mg/dL (NEGATIVE) 06/10/19 17:33 Urine Glucose (UA) NEGATIVE mg/dL (NEGATIVE) 06/10/19 17:33 Urine Ketones NEGATIVE mg/dL (NEGATIVE) 06/10/19 17:33 Urine Occult Blood TRACE-LYSE (NEGATIVE) 06/10/19 17:33 Urine Nitrite NEGATIVE (NEGATIVE) 06/10/19 17:33 Urine Bilirubin NEGATIVE (NEGATIVE) 06/10/19 17:33 Urine Urobilinogen 0.2 (NORMAL) E.U./dL (NORMAL) 06/10/19 17:33 Ur Leukocyte Esterase NEGATIVE (NEGATIVE) 06/10/19 17:33 Ur Microscopic Review NOT INDICATED 06/10/19 17:33 Urine Culture Comments NOT INDICATED 06/10/19 17:33 CSF Color COLORLESS (COLORLESS) 06/10/19 21:59 CSF Clarity CLEAR (CLEAR) 06/10/19 21:59 Xanthrochromic ABSENT (ABSENT) 06/10/19 21:59 CSF WBC 192 /mm^3 (0-5) H* 06/10/19 21:59 CSF RBC 0 /mm^3 (0-1) 06/10/19 21:59 CSF Cell Count Tube # CSF TUBE# 3 06/10/19 21:59 CSF Neutrophils 6 % (0-6) 06/10/19 21:59 CSF Lymphocytes 94 % (40-80) H 06/10/19 21:59 CSF Glucose 65 mg/dL (45-70) 06/10/19 21:59 CSF Total Protein 162 mg/dL (15-60) H 06/10/19 21:59 Salicylates < 6.0 mg/dL 06/10/19 16:39 Urine Opiates Screen NEGATIVE (NEGATIVE) 06/10/19 17:33 Ur Oxycodone Screen NEGATIVE (NEGATIVE) 06/10/19 17:33 Urine Methadone Screen NEGATIVE (NEGATIVE) 06/10/19 17:33 Ur Propoxyphene Screen NEGATIVE (NEGATIVE) 06/10/19 17:33 Acetaminophen < 10 ug/mL (10-30) L 06/10/19 16:39 Ur Barbiturates Screen NEGATIVE (NEGATIVE) 06/10/19 17:33 Ur Tricyclics Screen NEGATIVE (NEGATIVE) 06/10/19 17:33 Ur Phencyclidine Scrn NEGATIVE (NEGATIVE) 06/10/19 17:33 Ur Amphetamine Screen NEGATIVE (NEGATIVE) 06/10/19 17:33 U Methamphetamines Scrn NEGATIVE (NEGATIVE) 06/10/19 17:33 U Benzodiazepines Scrn NEGATIVE (NEGATIVE) 06/10/19 17:33 Urine Cocaine Screen NEGATIVE (NEGATIVE) 06/10/19 17:33 U Cannabinoids Screen POSITIVE (NEGATIVE) H 06/10/19 17:33 Ethyl Alcohol < 5.0 mg/dL 06/10/19 16:49
[2019-06-12] MEDS: MORPHINE 2 MG/ML CARPUJECT IVP PRN (16:17)
--- NOTE | 2019-06-12 18:02 | ANESTHESIA PROCEDURE NOTE ---
Anesth Central Line Template - Central Line Central Line Preparation: Consent Obtained, Time out completed, Ultrasound used, Sterile prep and drape Central line type: Single lumen (PICC line placed, uneventful, confirmed by CXR to be cavoatrial as to short for teleflex confirmation. Trimmed at 48cm, left at hub to skin, dressed with occlusive antibacterial picc dressing from kit, statlock on.) Central line catheter tip site resides: left brachial [place] Central line aftercare: Secured, Placement confirmed, No pneumothorax, Bundle checklist complete, Pt tolerated well
--- NOTE | 2019-06-12 18:34 | XRAY Report ---
Reason: PICC line placement Procedure Date: 06/12/2019 Accession Number: [id number] / [id number] Procedure: XR - Chest for Line Placement CPT Code: FULL RESULT: EXAM: CHEST RADIOGRAPHY EXAM DATE: 06/12/2019 05:17 PM. CLINICAL HISTORY: PICC line placement. COMPARISON: None. TECHNIQUE: 1 view. FINDINGS: Lungs/Pleura: No dense consolidation. No large effusion or pneumothorax. No pulmonary edema. Mediastinum: Heart and mediastinal contours are unremarkable. Other: Left PICC line tip terminates at the distal SVC. IMPRESSION: Left PICC line tip at the distal SVC. RADIA
[2019-06-13] MEDS: SODIUM CHLORIDE FLUSH 0.9% 10 ML SYRINGE IVP SCH ×2 (01:19→12:59)
[2019-06-13] MEDS: ACYCLOVIR INJ 800 MG in SODIUM CHLORIDE 0.9% 500 ML IV SCH ×2 (03:10→10:59)
[2019-06-13] MEDS: LACTATED RINGERS 1,000 ML IV SCH (05:47)
[2019-06-13 07:48] VITALS: BP 136/87
[2019-06-13] MEDS ORDERED: LACTATED RINGERS 1,000 ML IV SCH (10:30)
[2019-06-13] MEDS: DOCUSATE SODIUM 250 MG CAPSULE PO SCH (10:31)
[2019-06-13] MEDS: POLYETHYLENE GLYCOL 3350 17 GM PACKET PO SCH (10:31)
[2019-06-13 11:22] LABS: HSV 1 IGG TYPE SPECIFIC AB <0.90 index; HSV 2 IGG TYPE SPECIFIC AB <0.90 index
--- NOTE | 2019-06-13 13:35 | Discharge Plan ---
Discharge Plan Problem Reviewed?: Yes Disposition: Home, Self Care Condition: Stable Diet: Regular Activity Restrictions: Activity as Tolerated Shower Restrictions: No Instruction Topics: PICC, PICC Care Dc, PICC Line Flush Home Health Concerns: Viral meningitis Plan of Treatment: IV anti-viral medication to be administered via new PICC line for 7 days. Await results of viral tests to determine if longer treatment is necessary. The prescription for Acyclovir 800 mg in 500 cc of saline iv q8h, was ordered on a different form. Care Goals: Light activity and good hydration while you are recuperating. No work. Follow-up and any questions should be with your PCP. You may need referral to a Neurologist, especially if the viral test comes back positive. If it is positive, your PCP or Neurologist need to decide on the duration of further iv treatment, and further doses need to be ordered. Assessment: The patient and are in agreement with the plan. No Smoking: If you smoke, Please STOP! Call for help. Follow-up with: Zelda Kendrick MD [Primary Care Provider] -
[2019-06-13] MEDS ORDERED: ATORVASTATIN 10 MG TABLET PO SCH (21:00)
[2019-06-14] MEDS ORDERED: VENLAFAXINE 37.5 MG TABLET PO SCH (09:00)
[2019-06-14 14:06] LABS: HIV AG/AB 4TH GEN NON-REACTIVE (NON-REACTIVE)
[2019-06-19 17:01] LABS: 18 KD (IGG) BAND NON-REACTIVE; 23 KD (IGG) BAND NON-REACTIVE; 23 KD (IGM) BLOT NON-REACTIVE; 28 KD (IGG) BAND NON-REACTIVE; 30 KD (IGG) BAND NON-REACTIVE; 39 KD (IGG) BAND NON-REACTIVE; 39 KD (IGM) BLOT NON-REACTIVE; 41 KD (IGG) BAND NON-REACTIVE; 41 KD (IGM) BLOT NON-REACTIVE; 45 KD (IGG) BAND NON-REACTIVE; 58 KD (IGG) BAND NON-REACTIVE; 66 KD (IGG) BAND REACTIVE; 93 KD (IGG) BAND NON-REACTIVE
--- NOTE | 2019-06-20 13:16 | DISCHARGE SUMMARY ---
"Discharge Summary Admit Date: 06/10/19 Discharge Date: 06/13/19 Discharging Provider: Dr Thao Sorto Primary Care Provider: Dr Kendrick Code Status: Attempt Resuscitation Condition at Discharge: Stable Discharge Disposition: 01 Home, Self Care - DIAGNOSES Admission Diagnoses: 1) Altered mental status 2) Viral syndrome 3) Meningitis vs encephalitis, probably viral 4) Hx of HTN Discharge Diagnoses with Status of Each Condition: See below - HPI History of Present Illness: This is a 59 year old male with a past medical history significant for hypertension who presented from home today with altered mental status and combative. History was obtained from the son as the patient was altered. The patient's son described that a few days previously,the patient started to complain of a headache which is not usual for the patient. The headache progressively got worse and the son believed the patient was complaining of some mild left ear discomfort. The headache became so severe the morning of admission, that he sought medical attention at his PCP's office. The son described that the headache must have been really severe as his father normally does not seek medical attention. At his PCP's office, he received a shot of Toradol and went home to take a nap around noon. When he woke up from the nap, he was confused and agitated. EMS was called and the patient was given 7mg of Versed to sedate him. There was a history of recent travel to [place] and [place] near the end of April. He stayed in the city and did not go hiking or camping to their knowledge. He had not been complaining of fevers or rash. He does not have a history of headaches and an episode like this has not happened before. In the emergency department, he was afebrile with unremarkable vitals. His lab studies were also unremarkable. A CT and CTA of the head was unremarkable. The ER Physician performed an LP which showed clear CSF fluid. The patient was admitted for further workup and management of encephalopathy. - CONSULTS | PROCEDURES Consultations: None, except a phone Consult was held with ID at Procedures: PICC line placement - HOSPITAL COURSE Hospital Course: (1) Viral meningitis. He underwent brain imaging which was unremarkable. A spinal tap was done in the ER which showed: 192 WBCs (High), 94 Lymphocytes (High), glucose 65, total protein 162 (High). The results were consistent with a viral meningitis vs encephalitis and he was started on iv Acyclovir, and the empiric iv antibiotics (for possible bacterial meningitis) were stopped. His lethargy improved very slowly, but there was no more agitation and combativeness. I discussed his case with Infectious Disease Communication Instructor. His advanced age (over 55) is enough of a risk factor to have caught this virus, according to the ID Fellow. They advised additional test be run off the CSF fluid: PCR for HSV. 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 Tests were also sent for HIV, RPR for syphyllis and Lyme serologies. IV Acyclovir at 10 mg/kg dose every 8 hours was recommended. The duration of treatment was to be at least 7 days or until the PCR result comes back negative, alternatively if it is positive, he may need longer IV therapy. The is a nurse and stated that she has done home infusions before via a PICC line. A PICC line placed and iv Acyclovir infusions ordered to be done at home. Follow-up with his PCP was advised and he may need referral to a Neurologist, especially if the viral test comes back positive. If it is positive, the PCP or Neurologist need to decide on the duration of further iv treatment, and further doses need to be ordered, as per the ID recommendations. This was all communicated by phone to his PCP on the day of discharge. (2) Viral syndrome Assessment/Plan: He was very lethargic, sleeping almost all day, since admission. He had no appetite, but no N/V. He only consumed liquids off his meal trays. he was kept on iv fluids for hydration until discharge. (3) Hx of Hypertension His BP is stable, even off his home BP meds, but he is taking in nearly no fluids and no solids (no salt). The BP meds may be resumed after discharge. - ALLERGIES Allergies/Adverse Reactions: Allergies Allergy/AdvReac Type Severity Reaction Status Date / Time No Known Drug Allergies Allergy Verified 06/10/19 16:35 - MEDICATIONS Home Medications: Ambulatory Orders Medication Instructions Recorded Confirmed Lovastatin 40 mg PO QPM 06/10/19 06/11/19 Venlafaxine [Effexor] 37.5 mg PO DAILY 06/10/19 06/10/19 - PHYSICAL EXAM AT DISCHARGE General Appearance: positive: No acute distress, Other (Sleepy appearing, but alert and oriented x3. ) Eyes Bilateral: positive: Normal inspection Neck: positive: Nml inspection, No JVD Respiratory: positive: No respiratory distress Cardiovascular: positive: Regular rate & rhythm, No murmur Abdomen: positive: Non-tender, No distention Extremities: positive: No pedal edema Neurologic/Psychiatric: positive: Oriented x3, Other (No focal deficits) - LABS Result Diagrams: 06/12/19 05:44 06/12/19 05:44 - DIAGNOSTIC IMAGING Diagnostic Imaging Results: Final report reviewed - FOLLOW UP Follow Up: See PCP in 7 days. - TIME SPENT Time Spent in Discharge (Minutes): 60"
== END 2019-06-13 14:45 | disposition home or self-care (01) | DRG 98 ==
LOC: EDUNIT# → ED 16:20 → MS2 22:00 → OBSVTOIN 06-12 15:13
PROVIDERS: ADMIT Internal Medicine; ATTEND Internal Medicine
PROC: 02HV33Z Insertion of Infusion Device into Superior Vena Cava, Percutaneous Approach (ICD-10-PCS; principal; 2019-06-12)
DX: B00.4 Herpesviral encephalitis (principal); A87.9 Viral meningitis, unspecified; I10 Essential (primary) hypertension; J42 Unspecified chronic bronchitis; E78.5 Hyperlipidemia, unspecified; F17.220 Nicotine dependence, chewing tobacco, uncomplicated; Z72.89 Other problems related to lifestyle; Z79.899 Other long term (current) drug therapy; Z78.1 Physical restraint status
CPT/HCPCS: 36415; 51701; 62270; 70450; 70496; 70498; 80048; 80053; 80306; 80307; 80320; 80329; 81003; 81599; 82140; 82550; 82945; 83690; 83735; 84100; 84157; 84443; 85025; 86617; 86695; 86696; 87040; 87070; 87205; 87389; 89051; 93005; 96361; 96365; 96366; 96367; 96368; 96375; 96376; 99285; A9270; C1751; G0378; J0131; J0133; J1170; J1200; J2060; J3370; J7120; Q9967; 71045; 81001; 87086